=== PATIENT | female | born 1955 | race Caucasian/White ===

== ENCOUNTER → 2020-04-21 | Outpatient (CLI) | payer SELFPAY ==
--- NOTE | 2020-04-21 14:15 | US ---
EXAMINATION TYPE: US venous doppler duplex LE LT DATE OF EXAM: 04/21/2020 2:10 PM COMPARISON: NONE CLINICAL HISTORY: M79.662 PAIN IN LT LOWER LIMB. Left calf pain for 3 days SIDE PERFORMED: left TECHNIQUE: The lower extremity deep venous system is examined utilizing real time linear array sonog bonnie with graded compression, doppler sonography and color-flow sonography. VESSELS IMAGED: External Iliac Vein (EIV) Common Femoral Vein Deep Femoral Vein Greater Saphenous Vein * Femoral Vein Popliteal Vein Small Saphenous Vein * Proximal Calf Veins (* superficial vessels) Left Leg: No evidence of DVT. complex anechoic area left popliteal fossa = 5.0 x 2.9 x 4.2cm, Field' s cyst Grayscale, color doppler, spectral doppler imaging performed of the deep veins of the left lower extr emity. There is normal flow, compressibility, vascular waveforms. IMPRESSION: No ultrasound evidence for acute DVT in the left lower extremity. Large debris-filled po pliteal cyst noted towards the end of study.
== END | disposition home or self-care (01) ==
LOC: RADUSWWP 13:43
PROVIDERS: ATTEND Family Medicine
DX: M71.22 Synovial cyst of popliteal space [Baker], left knee (principal)

== ENCOUNTER → 2021-08-02 | Outpatient (CLI) | payer MEDICARE ==
--- NOTE | 2021-08-02 17:31 | US ---
EXAMINATION TYPE: US venous doppler duplex LE LT DATE OF EXAM: 08/02/2021 12:58 PM COMPARISON: 04/21/2020 CLINICAL HISTORY: 65-year-old female I80.9 Phlebitis/thrombophlebitis. Pain in left leg when patient tries to sleep on her side. No history of DVT. SIDE PERFORMED: left TECHNIQUE: The lower extremity deep venous system is examined utilizing real time linear array sonog bonnie with graded compression, doppler sonography and color-flow sonography. FINDINGS: VESSELS IMAGED: Common Femoral Vein Deep Femoral Vein Greater Saphenous Vein * Femoral Vein Popliteal Vein Small Saphenous Vein * Proximal Calf Veins (* superficial vessels) Left Leg: Negative for DVT. Known Bakers cyst from last years exam, today's measurements are 5.1 x 4.1 x 3.6cm (versus 5.0 x 4.2 cm, previously). IMPRESSION: 1. No evidence for DVT within the left lower extremity imaged from the groin to the upper calf. 2. Relatively stable moderate-sized 5.1 cm Field's cyst.
== END | disposition home or self-care (01) ==
LOC: RADUSWWP 12:34
PROVIDERS: ATTEND Orthopaedic Surgery
DX: M71.22 Synovial cyst of popliteal space [Baker], left knee (principal)

== ENCOUNTER → 2022-01-04 | Outpatient (CLI) | payer MEDICARE, OTHER ==
[2022-01-04 17:54] LABS: Basophils # (A) 0.04 X 10*3/uL (0.00-0.10); Basophils % (A) 0.6 %; Eosinophils # (A) 0.16 X 10*3/uL (0.04-0.35); Eosinophils % (A) 2.6 %; HCT 48.3 % (37.2-46.3); HGB 14.9 g/dL (12.0-15.0); Immature Grans, Automated 0.2 %; Lymphocytes # (A) 1.65 X 10*3/uL (0.90-5.00); Lymphocytes % (A) 26.5 %; MCH 28.7 pg (27.0-32.0); MCHC 30.8 g/dL (32.0-37.0); MCV 93.1 fL (80.0-97.0); Monocytes # (A) 0.48 X 10*3/uL (0.20-1.00); Monocytes % (A) 7.7 %; NRBC Per 100 WBC 0 /100 WBCS (0.0-0.0); Neutrophils # (A) 3.89 X 10*3/uL (1.80-7.70); Neutrophils % (A) 62.4 %; Platelet Count 229 X 10*3/uL (140-440); RBC 5.19 X 10*6/uL (4.10-5.20); WBC 6.23 X 10*3/uL (4.50-10.00)
[2022-01-04 18:05] LABS: African American GFR (CKD) 113.3 (60.0-200.0); Anion Gap 13.2 mmol/L (10.00-18.00); Blood Urea Nitrogen 12.5 mg/dL (9.0-27.0); Non-African American GFR(CKD) 97.7 (60.0-200.0); Potassium 4.8 mmol/L (3.5-5.5)
== END | disposition home or self-care (01) ==
LOC: LABPAT 11:53
PROVIDERS: ATTEND Obstetrics & Gynecology
DX: Z01.812 Encounter for preprocedural laboratory examination (principal); N81.11 Cystocele, midline
CPT/HCPCS: 80051; 82565; 82947; 84520; 85025; 87077; 87086; 87186; 93005

== ENCOUNTER → 2022-02-11 | Outpatient (CLI) | payer MEDICARE, OTHER ==
[2022-02-11 18:35] LABS: Basophils # (A) 0.03 X 10*3/uL (0.00-0.10); Basophils % (A) 0.5 %; Eosinophils # (A) 0.33 X 10*3/uL (0.04-0.35); Eosinophils % (A) 5.6 %; HCT 45.5 % (37.2-46.3); HGB 14.2 g/dL (12.0-15.0); Immature Grans, Automated 0.3 %; Lymphocytes # (A) 1.62 X 10*3/uL (0.90-5.00); Lymphocytes % (A) 27.3 %; MCH 28.9 pg (27.0-32.0); MCHC 31.2 g/dL (32.0-37.0); MCV 92.5 fL (80.0-97.0); Monocytes # (A) 0.52 X 10*3/uL (0.20-1.00); Monocytes % (A) 8.8 %; NRBC Per 100 WBC 0 /100 WBCS (0.0-0.0); Neutrophils # (A) 3.41 X 10*3/uL (1.80-7.70); Neutrophils % (A) 57.5 %; Platelet Count 190 X 10*3/uL (140-440); RBC 4.92 X 10*6/uL (4.10-5.20); RDW 15.2 % (11.5-14.5); WBC 5.93 X 10*3/uL (4.50-10.00)
[2022-02-11 20:33] LABS: African American GFR (CKD) 117.7 (60.0-200.0); Anion Gap 11.1 mmol/L (10.00-18.00); Blood Urea Nitrogen 13.2 mg/dL (9.0-27.0); Carbon Dioxide 24.9 mmol/L (20.0-27.5); Non-African American GFR(CKD) 101.6 (60.0-200.0)
== END | disposition home or self-care (01) ==
LOC: LABPAT 10:16
PROVIDERS: ATTEND Obstetrics & Gynecology
DX: Z01.812 Encounter for preprocedural laboratory examination (principal); Z01.818 Encounter for other preprocedural examination
CPT/HCPCS: 36415; 80051; 82565; 82947; 84520; 85025; 87086

== ENCOUNTER 2022-02-21 09:45 | Day surgery (SDC) | payer MEDICARE, OTHER ==
[2022-01-14 15:59] VITALS: BMI 34.3
--- NOTE | 2022-02-17 14:44 | HP ---
HISTORY AND PHYSICAL DATE OF DICTATION: 02/17/2022 DATE OF SURGERY: 02/21/2022. HISTORY OF PRESENT ILLNESS: The patient is a 66-year-old 1, para 1-0-0-1, who presents to the office with a known history of cystocele and was found at most recent examination with a grade 3+ symptomatic cystocele. She also complained of some incontinence and was sent for urologic evaluation, at which time she was deemed to not have any significant stress incontinence that would be aided by surgical repair. As a result she returns here to schedule repair of the cystocele. In the office I have been unable to document any significant uterine prolapse, and the rectum appears well supported. As a result, the plan at this time is to minimize the surgery and perform only repair of cystocele unless further prolapse is demonstrated under anesthesia. PAST MEDICAL HISTORY: Significant for gastroesophageal reflux. She also has a history of migraine headaches and known osteoporosis. PAST SURGICAL HISTORY: Significant for abdominoplasty in 2003, cholecystectomy in 1994, gastric bypass in 2001. She also had inguinal hernia repairs in 2003 and ovarian cystectomy in 1991, rotator cuff repair in 2002, and she has a remote history of tonsillectomy. Tubal ligation was performed in 1977. There have been no reported anesthetic concerns. OBSTETRICAL HISTORY: 1, para 1-0-0-1 with one term vaginal delivery without complications. GYNECOLOGICAL HISTORY: Unremarkable except as noted in history of present illness. FAMILY HISTORY: Noncontributory. SOCIAL HISTORY: The patient is and is a nonsmoker. She denies any alcohol or any other social concerns. CURRENT MEDICATIONS: Current medications include citalopram 20 mg daily, gabapentin 100 mg daily, and Requip 5 mg three times daily. ALLERGIES: NO KNOWN DRUG ALLERGIES. REVIEW OF SYSTEMS: Confined to history of present illness. PHYSICAL EXAMINATION: Vital signs are stable. The patient is afebrile. In general, this is a well- developed, well-nourished white female in no acute distress. Her heart has a regular rhythm and rate without murmur. Her lungs are clear to auscultation bilaterally in all henderson. Her abdomen is nondistended, has normoactive bowel sounds, is soft, nontender, and without any palpable masses, hepatosplenomegaly or hernias. Her extremities are without any cyanosis, clubbing or edema and are nontender to palpation bilaterally. Pelvic examination demonstrates normal external genitalia and BUS with normal vaginal mucosa and cervix. There is perhaps grade 2 uterine prolapse demonstrated in the office. Uterus itself is atrophic in size, mid plane, mobile, nontender, normal in shape. There is a grade 3+ cystocele present. The rectum appears to be well supported. ASSESSMENT AND PLAN: Symptomatic grade 3+ cystocele with no evidence of other prolapse. She has been evaluated by Urology, as noted in the history of present illness, and deemed not a candidate for surgical repair of incontinence, of which she has complaints. As a result, we will plan for anterior repair with possible vaginal hysterectomy and possible posterior repair if noted under anesthesia to be a problem. The risks and complications of these procedures have been discussed at length, including the risk for bleeding, bleeding requiring transfusion, infection, and injury to local structures to primarily include the bladder should anterior repair be the only procedure. I did discuss the risks to bowel and ureters should hysterectomy become indicated. She has understood all of these concerns and has agreed to proceed. We are scheduled for the morning of February 21, 2022, for the procedures as outlined above. MMODL / IJN: [id number] /
[2022-02-21] MEDS ORDERED: HEPARIN SODIUM,PORCINE/PF 5,000 UNIT/0.5 ML SYRINGE SQ ONE (10:24)
[2022-02-21] MEDS ORDERED: ONDANSETRON 4 MG/2 ML VIAL ONE ×2 (10:24→10:27)
[2022-02-21] MEDS ORDERED: DEXAMETHASONE SOD PHOSPHATE 4 MG/ML 1 ML VIAL ONE (10:27)
[2022-02-21] MEDS ORDERED: MORPHINE SULFATE (PF) 0.3 MG/0.3 ML SYR ONE (11:04)
[2022-02-21] MEDS ORDERED: PROPOFOL 10 MG/ML 20 ML VIAL IV ONE (11:04)
[2022-02-21] MEDS ORDERED: fentaNYL (PF) 50 MCG/ML 2 ML AMP ONE (11:04)
[2022-02-21] MEDS ORDERED: MIDAZOLAM 2 MG/2 ML VIAL ONE (11:04)
[2022-02-21] MEDS ORDERED: LACTATED RINGERS 1,000 ML IV ONE (11:09)
[2022-02-21] MEDS ORDERED: VASOPRESSIN 20 UNIT/ML 1 ML VIAL SQ ONE ×2 (11:29)
[2022-02-21] MEDS ORDERED: BACITRACIN ZINC 500 UNIT/GM OINT 28.4 GM TUBE TOPICAL ONE (11:31)
[2022-02-21] MEDS ORDERED: Acetaminophen-Codeine 300-30mg TAB PO PRN ×2 (11:58)
[2022-02-21] MEDS ORDERED: SIMETHICONE 80 MG CHEWABLE PO PRN (11:58)
[2022-02-21] MEDS ORDERED: ONDANSETRON 4 MG/2 ML VIAL IVP PRN (11:58)
[2022-02-21] MEDS ORDERED: METOCLOPRAMIDE 5 MG/ML 2 ML VIAL IVP PRN (11:58)
[2022-02-21] MEDS ORDERED: KETOROLAC 15 MG/ML 1 ML VIAL IVP PRN (11:58)
[2022-02-21] MEDS ORDERED: IBUPROFEN 600 MG TAB PO PRN (11:58)
--- NOTE | 2022-02-21 12:07 | P.OP ---
Date of Procedure: 02/21/22 Preoperative Diagnosis: #1. Symptomatic grade 3+ cystocele Postoperative Diagnosis: Same Procedure(s) Performed: #1. Anterior colporrhaphy Anesthesia: spinal Surgeon: Ethan Ruiz Linking Machine Operator #1: Stacie Anderson Estimated Blood Loss (ml): 10 IV fluids (ml): 500 Urine output (ml): 320 Pathology: none sent Condition: stable Disposition: PACU Operative Findings: Intraoperative pelvic examination demonstrated a grade 3+ cystocele present with grade 2 uterine prolapse. There was perhaps slightly more uterine prolapse noted with downward pressure using an Allis clamp, but the patient had opted to proceed with the least invasive surgery 2 improve her symptomatology. As a result, the vaginal hysterectomy was not included. The postprocedural result appeared to be excellent. Clear urine was seen both before and after the case. The rectum was relatively well supported. Should the patient require it in the future, vaginal hysterectomy is absolutely an option. Description of Procedure: The patient was prepped and draped in usual fashion after spinal anesthesia was administered by the anesthesiologist and sedation carried out. A weighted speculum was placed and the bladder drained of approximately 300 mL of clear berenice urine. The cervicovaginal mucosa was grasped at approximately 10:00 and 2:00 at the junction with the cervix. The vesicovaginal mucosa was infused with diluted vasopressin solution. A scalpel was utilized to create an incision from Allis clamp to Allis clamp after which time the clamps were transferred to the interior of the incision. A Metzenbaum scissors was used to undermine the vesicovaginal mucosa in the midline and divided from the cervix to the urethral apex of the repair. The mucosa was then reflected bilaterally from the underl jessica tissues both sharply and bluntly. After adequate reflection had been carried out and a Ponce catheter placed, serial Sherry plication stitches were placed from the urethral apex to the cervical margin using 2-0 Vicryl. The intervening and redundant vaginal mucosa was trimmed with a Ethibond scissors and discarded. The remaining incision was closed with a running locking stitch of 2-0 Vicryl from the urethral apex to the cervix. The catheter was seen to be mobile and drained another 20 mL of clear berenice urine. Vaginal packing with a 1 inch iodophor gauze covered with bacitracin ointment was placed. Estimated blood loss for the case was 10 mL or less. There were no complications. All sponge, instrument, and needle counts were correct. The patient tolerated the procedure well and proceeded to the recovery room in stable condition.
[2022-02-21] MEDS: LACTATED RINGERS 1,000 ML IV SCH (15:06)
[2022-02-21] MEDS ORDERED: LIDOCAINE 1% (10MG/ML) FOR IV START INTRADERMA PRN (15:31)
[2022-02-21] MEDS ORDERED: ONDANSETRON 4 MG/2 ML VIAL IVP ONE (15:31)
[2022-02-21] MEDS ORDERED: MIDAZOLAM 2 MG/2 ML VIAL IV PRN (15:31)
[2022-02-21] MEDS ORDERED: LACTATED RINGERS 1,000 ML IV SCH (15:31)
[2022-02-21] MEDS ORDERED: DEXAMETHASONE SOD PHOSPHATE 4 MG/ML 1 ML VIAL IV ONE (15:31)
[2022-02-21] MEDS ORDERED: HYDROmorphone 0.5 MG/0.5 ML SYRINGE IVP PRN (15:31)
[2022-02-21] MEDS: diphenhydrAMINE 50 MG/ML 1 ML VIAL IVP PRN ×2 (16:42→21:51)
[2022-02-21] MEDS: GABAPENTIN 300 MG CAP PO SCH (21:02)
[2022-02-21] MEDS: SENNOSIDES-DOCUSATE SODIUM 1 EACH TAB PO SCH (21:03)
[2022-02-21] MEDS: FAMOTIDINE 20 MG TAB PO SCH (21:03)
[2022-02-22] MEDS: LACTATED RINGERS 1,000 ML IV SCH (01:38)
[2022-02-22 02:09] VITALS: RESP 16
[2022-02-22 07:06] LABS: Basophils % (A) 0 %; Eosinophils # (A) 0.2 k/uL (0-0.7); Eosinophils % (A) 2 %; HGB 12.8 gm/dL (11.4-16.0); Hypochromasia Slight; Lymphocytes # (A) 1.6 k/uL (1.0-4.8); Lymphocytes % (A) 18 %; MCH 29.3 pg (25.0-35.0); MCHC 31.2 g/dL (31.0-37.0); MCV 93.8 fL (80.0-100.0); Mean Platelet Volume 8.7; Monocytes # (A) 0.5 k/uL (0-1.0); Monocytes % (A) 5 %; Neutrophils # (A) 6.5 k/uL (1.3-7.7); Neutrophils % (A) 73 %; Platelet Count 211 k/uL (150-450); RBC 4.37 m/uL (3.80-5.40); RDW 14.6 % (11.5-15.5); WBC 8.9 k/uL (3.8-10.6)
--- NOTE | 2022-02-22 08:35 | P.PN ---
Progress Note - Text Progress Note Date: 02/22/22 Postoperative day 1 status post anterior repair under spinal anesthesia, and in trathecal morphine given for postoperative analgesia, patient doing well, there is no anesthesia related complications, Patient had no headache, vital signs stable , Assessment and plan= postop day 1 , doing well there is no anesthesia related complication.
[2022-02-22 08:38] VITALS: BP 139/90; PULSE 83; TEMP 98.1
--- NOTE | 2022-02-22 08:39 | P.DS ---
Providers Expected date of discharge: 02/22/22 Attending physician: Ethan Ruiz Primary care physician: Addison Rice [facility] Course: The patient has been found with a previously documented large cystocele which has become more symptomatically over time and has requested repair. She additionally reported some urinary incontinence and was evaluated by urology who found that there was no surgical intervention necessary or warranted at the time of evaluation. As a result, she was taken the operating room with the intention of performing anterior colporrhaphy with possible vaginal hysterectomy should the uterus have a significant part in the prolapse. At the time of surgery and under anesthesia, the decision was made to be the uterus in place in the anterior colporrhaphy was carried out and an incompetent fashion without difficulty. The patient's post operative course has been unremarkable with vital signs remaining stable and her temperature was afebrile throughout. She is tolerating regular diet. She has been up and ambulatory without difficulty. She is currently undergoing a voiding trial and has yet to void but will be discharged a semen she is able to void more than half of the volume of her bladder. The patient is deemed stable for discharge today and will be discharged home to follow-up in the office in 2 weeks for recheck in 6 weeks routinely. Discharge instructions included calling for any significantly increased the leading, fever, pain, signs or symptoms of infection, urinary retention or other concerns from urinary perspective. She was instructed to do no heavy lifting over the course of the next 6 weeks and to have nothing in the vagina over the same period of time. She was last instructed to do no driving until off of all pain medications or 2 weeks' time, whichever came first. She understood all of her instructions and agrees follow up as noted above. Discharge medications included only her home medications as well as [id number] analgesic pain medications. Discharge hemoglobin and hematocrit were 12.8 and 41.0 respectively. Procedures: #1. Anterior colporrhaphy Patient Condition at Discharge: Stable Plan - Discharge Summary Discharge Rx Participant: No New Discharge Prescriptions: No Action Gabapentin [Neurontin] 300 mg PO TID Krill Oil 500 mg PO DAILY Ascorbic Acid [Vitamin C] 1,000 mg PO DAILY Multivit with Calcium,Iron,Min [Women's Multivitamin] 1 each PO DAILY Aspirin 650 mg PO DIRECTED PRN PRN Reason: Headache rOPINIRole HCL [Requip] 3 mg PO BID Famotidine [Pepcid] 40 mg PO BID Citalopram Hydrobromide [CeleXA] 20 mg PO DAILY Cyclobenzaprine [Flexeril] 10 mg PO TID Magnesium Oxide [Mag-Ox] 400 mg PO DAILY Cyanocobalamin/Cobamamide [Vitamin B-12 5,000 Mcg Tab Sl] 1 tab SUBLINGUAL DAILY Discharge Medication List Ascorbic Acid [Vitamin C] 1,000 mg PO DAILY 01/14/22 [History] Aspirin 650 mg PO DIRECTED PRN 01/14/22 [History] Citalopram Hydrobromide [CeleXA] 20 mg PO DAILY 01/14/22 [History] Cyanocobalamin/Cobamamide [Vitamin B-12 5,000 Mcg Tab Sl] 1 tab SUBLINGUAL DAILY 01/14/22 [History] Cyclobenzaprine [Flexeril] 10 mg PO TID 01/14/22 [History] Famotidine [Pepcid] 40 mg PO BID 01/14/22 [History] Gabapentin [Neurontin] 300 mg PO TID 01/14/22 [History] Krill Oil 500 mg PO DAILY 01/14/22 [History] Magnesium Oxide [Mag-Ox] 400 mg PO DAILY 01/14/22 [History] Multivit with Calcium,Iron,Min [Women's Multivitamin] 1 each PO DAILY 01/14/22 [History] rOPINIRole HCL [Requip] 3 mg PO BID 01/14/22 [History] Follow up Appointment(s)/Referral(s): Ethan Ruiz MD [STAFF PHYSICIAN] - 2 Weeks Discharge Disposition: HOME SELF-CARE
[2022-02-22] MEDS: FAMOTIDINE 20 MG TAB PO SCH (09:10)
[2022-02-22] MEDS: GABAPENTIN 300 MG CAP PO SCH (09:10)
[2022-02-22] MEDS: SENNOSIDES-DOCUSATE SODIUM 1 EACH TAB PO SCH (09:12)
[2022-02-22] MEDS ORDERED: ACETAMINOPHEN TAB 325 MG TAB PO PRN (12:00)
== END 2022-02-22 10:10 | disposition home or self-care (01) ==
LOC: OR 09:45 → 4FBP 11:50 → OR 02-22 10:10
PROVIDERS: ATTEND Obstetrics & Gynecology
DX: N81.11 Cystocele, midline (principal); N81.10 Cystocele, unspecified; K21.9 Gastro-esophageal reflux disease without esophagitis; M81.0 Age-related osteoporosis without current pathological fracture; Z79.899 Other long term (current) drug therapy; Z90.49 Acquired absence of other specified parts of digestive tract; Z98.84 Bariatric surgery status
CPT/HCPCS: 57240; 85025; J2250; J1200; J1100; J0690; J2405; J0696 ×2; J2274; J3010; J2704; 86850; 86900; 86901

== ENCOUNTER → 2022-10-14 | Outpatient (CLI) | payer MEDICARE, OTHER ==
--- NOTE | 2022-10-16 11:08 | CT ---
EXAMINATION TYPE: CT abdomen pelvis wo con CT DLP: 1139.60 mGycm, Automated exposure control for dose reduction was used. DATE OF EXAM: 10/14/2022 6:11 PM COMPARISON: None CLINICAL INDICATION:Female, 67 years old with history of K92.2 GASTROINTESTINAL HEMORRHAGE, UNSPECIFI ED; painful bruising on lower abdomen. pt states she has been coughing a lot due to pneumonia TECHNIQUE: Axial CT of the abdomen and pelvis. Sagittal and coronal reformats were created on a [employer] workstation. Contrast used: None Oral contrast used: without Oral Contrast FINDINGS: LOWER CHEST: Streaky atelectasis and increased interstitial lung markings in lung bases. Elevated ri ght diaphragm. ABDOMEN LIVER: Unremarkable GALLBLADDER AND BILE DUCTS: The gallbladder is surgically absent. PANCREAS: Unremarkable. SPLEEN: Unremarkable. ADRENAL GLANDS: Unremarkable. KIDNEYS AND URETERS: No evidence of hydronephrosis or renal calculus. The ureters are unremarkable. PELVIS BLADDER: Unremarkable REPRODUCTIVE: Unremarkable. ABDOMEN & PELVIS STOMACH AND BOWEL: Moderate hiatal hernia and post surgical changes to gastroesophageal junction. No evidence of bowel obstruction. Scattered clonic diverticular PERITONEUM: No evidence of pneumoperitoneum or free fluid. VASCULATURE: No evidence of aortic aneurysm. MUSCULOSKELETAL: No acute osseous abnormalities LYMPH NODES: No gross evidence for lymphadenopathy. SOFT TISSUE/ABDOMINAL WALL: Suspected right rectus abdominis intramuscular hematoma. Measuring up to 7.0 x 5.8 x 2.4 cm. There is subcutaneous fat stranding changes just superficial to this.11 IMPRESSION: 1. Right rectus abdominis intramuscular hematoma with associated subcutaneous fat stranding probable edema consistent with history of bruising. 2. No acute abdominal process. 3. Colonic diverticulosis. 4. Postoperative changes to the stomach and gastric esophageal junction with small hiatal hernia. A Yellow level critical message alert has been initiated for Addison Rice MD via the [employer] Critical Results System on 10/16/2022 11:04 AM. This message alert has been sent to Addison Rice MD v ia the preferences provided by the clinician for the receipt of Radiology Critical Findings. Message ID [id number].
== END | disposition home or self-care (01) ==
LOC: RADCTMAIN 16:55
PROVIDERS: ATTEND Family Medicine
DX: K92.2 Gastrointestinal hemorrhage, unspecified (principal); K44.9 Diaphragmatic hernia without obstruction or gangrene
CPT/HCPCS: 74176

== ENCOUNTER → 2025-05-23 | Outpatient (CLI) | payer MEDICARE ==
--- NOTE | 2025-05-25 14:44 | XR ---
EXAMINATION TYPE: XR tibia fibula RT DATE OF EXAM: 05/23/2025 11:45 AM COMPARISON: None CLINICAL INDICATION: Female, 69 years old with history of M84.361 S82.401; PHH, pain TECHNIQUE: 2 views FINDINGS: Generalized subcutaneous soft tissue swelling. Suspect some underlying varices as well. There is oste openia. Small posterior and plantar heel spurs. Partially visualized screw fixation at the base of th e fifth metatarsal. No periostitis or osteolysis. No acute fracture, subluxation, or dislocation is s een. Degenerative spurring at the patellofemoral compartment. IMPRESSION: 1. Generalized soft tissue swelling. Suspect underlying varices as well. There is osteopenia without acute osseous abnormality seen. 2. At least moderate patellofemoral compartmental OA. Calcaneal heel spurs. [facility], , 05/25/2025 2:42 PM
== END | disposition home or self-care (01) ==
LOC: RADXRMAIN 11:15
PROVIDERS: ATTEND Family Medicine
DX: S82.401A Unspecified fracture of shaft of right fibula, initial encounter for closed fracture (principal); M77.31 Calcaneal spur, right foot; M85.80 Other specified disorders of bone density and structure, unspecified site; M17.11 Unilateral primary osteoarthritis, right knee; X58.XXXA Exposure to other specified factors, initial encounter